=== PATIENT | female | born 1960 | race Caucasian/White ===

== ENCOUNTER → 2022-01-22 | Outpatient (CLI) | payer OTHER ==
[~2022-01-22] MED LIST: AMOCLA875 PO; ASPI81CH PO; CIPRO500 MG PO; FISH1000 PO; Flagyl500 MG PO; MULVITMIND PO; Motion Sickness25 M1 PO; Norco 5-325 Ta1 EACH PO; ONDA4ODT MM
== END ==
LOC: LAB SHORT 17:13 → LAB 17:13
DX: R35.0 Frequency of micturition (principal)
CPT/HCPCS: 87077; 87086; 87186

== ENCOUNTER → 2022-02-16 | Outpatient (CLI) | payer OTHER ==
[2022-02-24 09:56] LABS: Stool Occult Bld Immuno 1 Negative (NEGATIVE)
== END | disposition home or self-care (01) ==
LOC: LAB SHORT 12:00 → PLD 12:00
PROVIDERS: Registered Nurse
DX: Z12.11 Encounter for screening for malignant neoplasm of colon (principal); Z12.12 Encounter for screening for malignant neoplasm of rectum
CPT/HCPCS: G0328

== ENCOUNTER 2022-07-13 19:57 | Emergency (ER) | payer OTHER ==
[~2022-07-13] VITALS: Ht 160 cm; Wt 108.4 kg
[2022-07-13] MEDS ORDERED: Prinivil10 MG PO (20:53)
[2022-07-13] MEDS ORDERED: METF500C PO (20:54)
[2022-07-13] MEDS ORDERED: DOCU100 PO (20:54)
[2022-07-13] MEDS ORDERED: LAVAP4L PO (21:40)
[2022-07-13] MEDS ORDERED: Magic Bullet10 MG PR (21:40)
== END 2022-07-13 21:53 | disposition home or self-care (01) ==
LOC: ER 19:57
DX: K59.00 Constipation, unspecified (principal); I10 Essential (primary) hypertension; J44.9 Chronic obstructive pulmonary disease, unspecified; F17.200 Nicotine dependence, unspecified, uncomplicated; Z88.0 Allergy status to penicillin; Z79.899 Other long term (current) drug therapy; Z79.82 Long term (current) use of aspirin
CPT/HCPCS: 74019

== ENCOUNTER 2022-10-28 11:35 | Day surgery (SDC) | payer OTHER ==
[~2022-10-28] VITALS: Ht 160 cm; Wt 108.5 kg
[~2022-10-28 11:35] MED LIST changes: +DOCU100 PO; +LAVAP4L PO; +METF500C PO; +Magic Bullet10 MG PR; +Prinivil10 MG PO
[2022-10-28] MEDS ORDERED: ERGO400 (12:23)
== END 2022-10-28 14:13 | disposition home or self-care (01) ==
LOC: ORSCSDS 11:35
PROVIDERS: Internal Medicine Gastroenterology
PROC: 0DBL8ZX Excision of Transverse Colon, Via Natural or Artificial Opening Endoscopic, Diagnostic (ICD-10-PCS; principal; 2022-10-28 13:00)
PROC: 0DBN8ZX Excision of Sigmoid Colon, Via Natural or Artificial Opening Endoscopic, Diagnostic (ICD-10-PCS; principal; 2022-10-28 13:00)
DX: R19.4 Change in bowel habit (principal); K59.00 Constipation, unspecified; D12.5 Benign neoplasm of sigmoid colon; K63.5 Polyp of colon; D12.3 Benign neoplasm of transverse colon; K57.30 Diverticulosis of large intestine without perforation or abscess without bleeding; K64.8 Other hemorrhoids; G47.33 Obstructive sleep apnea (adult) (pediatric); J45.909 Unspecified asthma, uncomplicated; E66.01 Morbid (severe) obesity due to excess calories; Z68.41 Body mass index [BMI] 40.0-44.9, adult; E11.9 Type 2 diabetes mellitus without complications; I10 Essential (primary) hypertension; Z79.899 Other long term (current) drug therapy; Z79.84 Long term (current) use of oral hypoglycemic drugs
CPT/HCPCS: 82947; 88305; J1100; J2250; J2405; J2704; J3010; J7120

== ENCOUNTER → 2023-01-21 | Outpatient (CLI) | payer OTHER ==
[~2023-01-21] MED LIST changes: +ERGO400
[2023-01-26 15:12] LABS: HPV 16 Negative (Negative); HPV 18 Negative (Negative); HPV OTHER HR TYPES Negative (Negative)
== END | disposition home or self-care (01) ==
LOC: LAB 16:38 → LAB SHORT 16:38
PROVIDERS: Registered Nurse
DX: Z01.419 Encounter for gynecological examination (general) (routine) without abnormal findings (principal)
CPT/HCPCS: 87624; G0145

== ENCOUNTER 2023-07-02 07:53 | Inpatient (IN) | payer OTHER ==
[~2023-07-02] VITALS: Ht 160 cm; Wt 113.5 kg
[~2023-07-02 07:53] MED LIST changes: -ERGO400; +ERGO400 PO; +Hair, Skin & N1 EACH PO; -MULVITMIND PO
[2023-07-02 09:04] LABS: BASOPHILS ABSOLUTE AUTO 0.04 K/mm3 (0.00-0.23); BASOPHILS PERCENT AUTO 0 % (0-2); EOSINOPHILS ABSOLUTE AUTO 0.03 K/mm3 (0.00-0.68); EOSINOPHILS PERCENT AUTO 0 % (0-6); Hematocrit 40.1 % (33.0-51.0); Hemoglobin 13.6 g/dL (11.5-16.0); IMMATURE GRAN ABSOLUTE AUTO 0.06 K/mm3 (0.00-0.10); IMMATURE GRAN PERCENT AUTO 0 % (0-1); LYMPHOCYTES ABSOLUTE AUTO 2.67 K/mm3 (0.84-5.20); LYMPHOCYTES PERCENT AUTO 16 % (21-46); MONOCYTES ABSOLUTE AUTO 1.36 K/mm3 (0.16-1.47); MONOCYTES PERCENT AUTO 8 % (4-13); Mean Corpuscular HGB Conc 33.9 g/dL (31.5-36.5); Mean Corpuscular Volume 86 fL (80-100); NEUTROPHILS ABSOLUTE AUTO 12.09 K/mm3 (1.96-9.15); NEUTROPHILS PERCENT AUTO 74 % (41-73); Platelet Count 258 K/mm3 (150-400); RDW Coefficient Variation 13.9 % (11.7-14.2); RDW Standard Deviation 43.1 fL (35.1-46.3); Red Blood Cell Count 4.69 M/mm3 (3.80-5.20); White Blood Cell Count 16.25 K/mm3 (4.00-11.30)
[2023-07-02 09:33] LABS: Albumin, Blood 3.4 g/dL (3.4-5.0); Albumin/Globulin Ratio 0.9 (0.8-1.8); Bilirubin, Total 1.4 mg/dL (0.1-1.0); Bun/Creatinine Ratio 20.2 (12.0-20.0); Calcium, Blood 8.9 mg/dL (8.5-10.1); Creatinine, Blood 0.74 mg/dL (0.40-1.00); Globulin, Blood 3.8 g/dL (2.2-4.0); Potassium, Blood 3.6 mmol/L (3.5-5.5); Total Protein, Blood 7.2 g/dL (6.4-8.2)
[2023-07-02 10:56] LABS: Source, Urine Voided
[2023-07-02 11:05] LABS: Bilirubin, Urine Neg (Neg); Blood, Urine 4+ (Neg); Glucose Qualitative, Urine Neg (Neg); Ketones, Urine Neg (Neg); Leukocyte Esterase, Urine 1+ (Neg); Nitrite, Urine Neg (Neg); Protein, Urine 1+ (Neg); Specific Gravity, Urine 1.005 (1.003-1.022); Urobilinogen, Urine 1+ (Normal); pH, Urine 6.5 (5.0-8.0)
[2023-07-02 11:42] LABS: Appearance, Urine Clear (Clear); Color, Urine Yellow (P-Yellow)
[2023-07-02 11:43] LABS: Bacteria Few /hpf; Squamous Epithelial Cells Few /hpf (Few); White Blood Cells, Urine 0-2 /hpf (0-5)
[2023-07-02 13:30] VITALS: BP 92/51
[2023-07-02 15:22] VITALS: BP 118/69
[2023-07-02 19:56] VITALS: BP 83/55
--- NOTE | 2023-07-02 20:27 | NUR ---
LOW BP ON NIGHT TIME VITALS. PT FEELING MOSTLY FINE, PERHAPS A BIT LIGHTHEADED. THIS IS AFTER RECENT DILAUDID ADMINISTRATION FOR PAIN. CALLED TO NOTIFY HOSPITALIST DO. DO DIRECTED TO PAUSE ABX, RUN CURRENTLY HANGING LR BAG AT BOLUS SPEED AND RECHECK BP AFTERWARDS. DOING SO NOW.
--- NOTE | 2023-07-02 20:37 | NUR ---
SHIFT SUMMARY: ASSUMED CARE OF PATIENT UPON HER ARRIVAL FROM ER AT 1319 VIA GURNEY. A&O X 4, IN PAIN. ABLE TO MILLIGAN, SBA TO BR. SKIN INTACT. C/O 9/10 PAIN IN L SIDE OF ABDOMEN; RECIEVED ORDER FOR FENTANYL 25 MCG, BUT THIS WAS NOT EFFECTIVE. ORDER CHANGED TO DILAUDID WHICH WAS MUCH MORE EFFECTIVE. DR. NEGRON (SURGERY) CAME TO BEDSIDE FOR CONSULTATION. FAMILY AT BEDSIDE.
[2023-07-02 21:28] VITALS: BP 110/56
[2023-07-03 02:03] VITALS: BP 102/43
--- NOTE | 2023-07-03 03:53 | NUR ---
SHIFT SUMMARY. CONCERN DUE TO LOW BP EARLY IN SHIFT WHICH WAS MANAGED VIA LR FLUID BOLUS PER ORDER OF HOSPITALIST DO. DR. HOLDER CAME TO EXAMINE PT THEREAFTER. DIRECTED ME TO PERFORM Q4 ABDOMINAL ASSESSMENTS FOR REMAINDER OF THIS SHIFT AND NOTIFY HIM IF BP DROPS AGAIN. BP HAS REMAINED STABLE, DR. HOLDER NOTIFIED OF MOST RECENT BP AND WAS COMFORTABLE WITH THIS VALUE. PT COMPLAINED OF GAS RELATED PAIN EARLY THIS MORNING WHICH HAS BEEN MANAGED VIA SIMETHICONE ORDERED BY DR. HOLDER. NAUSEA REPORTED ONCE WHICH HAS BEEN MAANGED WITH PRN ZOFRAN. AOX4, PLEASANT, COOPERATIVE WITH CARE. SOMEWHAT ANXIOUS. SBA TRANSFER. BED LOCKED IN LOWEST POSITION. CALL LIGHT LEFT WITHIN REACH.
[2023-07-03 05:43] LABS: Albumin, Blood 2.9 g/dL (3.4-5.0); Albumin/Globulin Ratio 0.8 (0.8-1.8); Bilirubin, Total 1.5 mg/dL (0.1-1.0); Bun/Creatinine Ratio 22.9 (12.0-20.0); Calcium, Blood 8.4 mg/dL (8.5-10.1); Creatinine, Blood 0.96 mg/dL (0.40-1.00); Globulin, Blood 3.6 g/dL (2.2-4.0); Magnesium, Blood 2.1 mg/dL (1.6-2.4); Phosphorus, Blood 4.3 mg/dL (2.5-4.9); Potassium, Blood 3.4 mmol/L (3.5-5.5); Total Protein, Blood 6.5 g/dL (6.4-8.2)
[2023-07-03 05:53] LABS: BASOPHILS ABSOLUTE AUTO 0.05 K/mm3 (0.00-0.23); BASOPHILS PERCENT AUTO 0 % (0-2); EOSINOPHILS ABSOLUTE AUTO 0.03 K/mm3 (0.00-0.68); EOSINOPHILS PERCENT AUTO 0 % (0-6); Hematocrit 34.5 % (33.0-51.0); Hemoglobin 11.3 g/dL (11.5-16.0); IMMATURE GRAN ABSOLUTE AUTO 0.11 K/mm3 (0.00-0.10); IMMATURE GRAN PERCENT AUTO 1 % (0-1); LYMPHOCYTES ABSOLUTE AUTO 2.31 K/mm3 (0.84-5.20); LYMPHOCYTES PERCENT AUTO 14 % (21-46); MONOCYTES ABSOLUTE AUTO 1.47 K/mm3 (0.16-1.47); MONOCYTES PERCENT AUTO 9 % (4-13); Mean Corpuscular HGB 28.5 pg (26.0-34.0); Mean Corpuscular HGB Conc 32.8 g/dL (31.5-36.5); Mean Corpuscular Volume 87 fL (80-100); Mean Platelet Volume 9.1 fL (9.1-12.4); NEUTROPHILS ABSOLUTE AUTO 12.55 K/mm3 (1.96-9.15); NEUTROPHILS PERCENT AUTO 76 % (41-73); Platelet Count 207 K/mm3 (150-400); RDW Coefficient Variation 14.1 % (11.7-14.2); Red Blood Cell Count 3.96 M/mm3 (3.80-5.20); White Blood Cell Count 16.52 K/mm3 (4.00-11.30)
[2023-07-03 07:14] VITALS: BP 102/63
--- NOTE | 2023-07-03 08:37 | NUR ---
ASSUMED CARE: PT AWAKE, TALKING TO STAFF, SITTING UP IN BED EATING BREAKFAST. DENIES NEEDS OR CONCERNS AT THIS TIME.
[2023-07-03 16:10] VITALS: BP 108/48
--- NOTE | 2023-07-03 17:49 | NUR ---
SHIFT SUMMARY: PT MINIMAL ASSIST TO RESTROOM. REQUIRES PAIN MEDICATION AFTER ACITIVITY AND USUALLY EVERY [address] NEGRON CAME TO SEE PT AND NO PLANS FOR OPERATION AT THIS TIME. TITA CAME TO VISIT THIS SHIFT. NO ACUTE NEEDS OR CONCERNS.
[2023-07-03 19:15] VITALS: BP 129/68
[2023-07-04] VITALS (9 sets, daily range): BP systolic 115–147; BP diastolic 68–88
--- NOTE | 2023-07-04 08:56 | NUR ---
SHIFT SUMMARY PT A/O, CALM/COOPERATIVE AND ABLE TO MAKE NEEDS KNOWN. SBA TO RESTROOM. CONSTANT PAIN AND MANAGED PER MAR. NAUSEA, BUT NO VOMITING. ROUNDING COMPLETED. CONTINUITY OF CARE ENDORSED TO ONCOMING NURSE.
[2023-07-04 09:32] LABS: Hematocrit 34.4 % (33.0-51.0); Hemoglobin 11.1 g/dL (11.5-16.0); Mean Corpuscular HGB 28.5 pg (26.0-34.0); Mean Corpuscular HGB Conc 32.3 g/dL (31.5-36.5); Mean Corpuscular Volume 88 fL (80-100); Mean Platelet Volume 9.4 fL (9.1-12.4); Platelet Count 214 K/mm3 (150-400); RDW Coefficient Variation 13.8 % (11.7-14.2); RDW Standard Deviation 44.7 fL (35.1-46.3); Red Blood Cell Count 3.89 M/mm3 (3.80-5.20); White Blood Cell Count 18.24 K/mm3 (4.00-11.30)
[2023-07-04 09:55] LABS: Albumin, Blood 2.8 g/dL (3.4-5.0); Albumin/Globulin Ratio 0.7 (0.8-1.8); Bilirubin, Total 1.9 mg/dL (0.1-1.0); Bun/Creatinine Ratio 19.1 (12.0-20.0); Calcium, Blood 8.7 mg/dL (8.5-10.1); Creatinine, Blood 0.73 mg/dL (0.40-1.00); Globulin, Blood 4.2 g/dL (2.2-4.0)
--- NOTE | 2023-07-04 18:23 | NUR ---
PT AOX4 AND COOPERATIVE OF CARE. PT HAS BEEN HAVING NEW INCREASED PAIN RIGHT BELOW LOWER R LUNG AREA. THIS RELAY ENGINEER NOTFIED DRY SELLERS AND FLUIDS WERE STOPPED AND IMAGING ORDERED. CT WAS DONE TOWARDS END OF SHIFT. RADIOLIGST CALLED AND STATED THERE WERE CHANGES AND TO NOTIFY DR NEGRON. DR NEW WAS ALSO NOTIFIED WELL. PT HAS BEEN TREATED THROUGHOUT THE DAY FOR PAIN PER EMAR. PT HAS BEEN INDEPENDENT. CALL LIGHT IS WITHIN REACH WILL CONTINUE TO MONITOR.
[2023-07-05] VITALS (12 sets, daily range): BP systolic 99–164; BP diastolic 55–86
[2023-07-05 05:03] LABS: Hemoglobin 10.7 g/dL (11.5-16.0); Mean Corpuscular HGB 28.5 pg (26.0-34.0); Mean Corpuscular HGB Conc 32.4 g/dL (31.5-36.5); Mean Corpuscular Volume 88 fL (80-100); Mean Platelet Volume 9.5 fL (9.1-12.4); Platelet Count 212 K/mm3 (150-400); RDW Coefficient Variation 13.7 % (11.7-14.2); RDW Standard Deviation 44.3 fL (35.1-46.3); Red Blood Cell Count 3.76 M/mm3 (3.80-5.20)
[2023-07-05 05:25] LABS: Albumin, Blood 2.4 g/dL (3.4-5.0); Albumin/Globulin Ratio 0.6 (0.8-1.8); Bilirubin, Total 1.2 mg/dL (0.1-1.0); Bun/Creatinine Ratio 15.4 (12.0-20.0); Calcium, Blood 8.6 mg/dL (8.5-10.1); Creatinine, Blood 0.72 mg/dL (0.40-1.00); Potassium, Blood 3.6 mmol/L (3.5-5.5); Total Protein, Blood 6.4 g/dL (6.4-8.2)
--- NOTE | 2023-07-05 06:45 | NUR ---
SHIFT SUMMARY PT IS A&O4, IND TO THE BR, RA, VSS, PRN PAIN MEDICATION GIVEN Q2 THROUGHOUT NIGHT FOR AB PAIN, Q1 VITALS DC'D PER DR NEGRON, PT HAS BEEN NPO, NO ACUTE OVERNIGHT EVENTS, CONTINUE POC
--- NOTE | 2023-07-05 12:05 | NUR ---
PATIENT OFF UNIT TO DAY SURGERY VIA HAIR. DAUGHTER HAM ACCOMPANIED.
--- NOTE | 2023-07-05 12:21 | NUR ---
Arrived to Day Surgery by edelmira. History, Chart, Medications and Allergies reviewed before start of procedure. Patient confirms NPO status and agrees with scheduled surgery. Pre-Op teaching done. Pt verbalizes understanding. Surgical site prepped with 2% Chlorhexidine cloth wipe.
--- NOTE | 2023-07-05 17:25 | NUR ---
07/05/23 172 Eliseo Epperson ASSUMED CARE TEACHER OF THE HANDICAPPED AT 1700
--- NOTE | 2023-07-05 19:20 | NUR ---
ARRIVAL TO ROOM PT ARRIVAL TO ROOM VIA GURNEY FROM PACU. PT DROWSY BUT EASILY AROUSABLE. FAMILY AT BEDSIDE. O2 IN PLACE AT 3L NC, KRAUS DRAINING DARK PITER URINE, 4 INCISIONS TO ABD C/D. IV TO R UPPER ARM INFUSING NS @125/HR.
[2023-07-06 04:41] VITALS: BP 128/72
[2023-07-06 05:33] LABS: Hematocrit 31.7 % (33.0-51.0); Hemoglobin 10.2 g/dL (11.5-16.0); Mean Corpuscular HGB 28.2 pg (26.0-34.0); Mean Corpuscular HGB Conc 32.2 g/dL (31.5-36.5); Mean Corpuscular Volume 88 fL (80-100); Mean Platelet Volume 9.3 fL (9.1-12.4); Platelet Count 254 K/mm3 (150-400); RDW Coefficient Variation 13.6 % (11.7-14.2); RDW Standard Deviation 43.6 fL (35.1-46.3); Red Blood Cell Count 3.62 M/mm3 (3.80-5.20); White Blood Cell Count 13.01 K/mm3 (4.00-11.30)
[2023-07-06 06:21] LABS: Bun/Creatinine Ratio 18.6 (12.0-20.0); Creatinine, Blood 0.75 mg/dL (0.40-1.00); Potassium, Blood 3.8 mmol/L (3.5-5.5)
--- NOTE | 2023-07-06 07:32 | NUR ---
SHIFT SUMMARY POD 1 ROBOTIC LAP PARTIAL SIGMID COLECTOMY R/T ACUTE DIVERTIC W/ PERFERATION. 4 ABD INCISIONS W/ LARGEST ON RLQ, WOUND GLUE INTACT W/ NO DRAINAGE TO INCISIONS. PT REMAINS NPO W/ MINIMAL ICE CHIPS DURING NIGHT. PT CONTINUES TO C/O DISCOMFORT TO CATHETER BUT WHEN DISCUSSED GETTING UP TO BATHROOM, PT OPTED TO WAIT FOR REMOVAL. KRAUS REMOVED THIS A.M. BY CNA2. PT REQUESTED PAIN MEDS, DILAUDID 1MG, 4X THIS SHIFT FOR 8/10 PAIN TO ABD/ ELEUTERIO AREA. IV FLUIDS KVO NS @20/HR TO R FA. PT A&OX4, FRIENDLY. NO ACUTE CHANGES THIS SHIFT. CALL LIGHT W/ IN REACH.
[2023-07-06 07:50] VITALS: BP 115/56
[2023-07-06 15:58] VITALS: BP 132/63
--- NOTE | 2023-07-06 19:28 | NUR ---
SHIFT SUMMARY POD1 EXLAP WITH PARTIAL COLLECTOMY, A/OX4, VSS, TOLERATING DIET, PAIN MANAGED PER EMAR. DISCUSSED PAIN MANAGEMENT AND TRANSITIONING TO PO PAIN MEDICATION, PT REFUSED TO TAKE ANY PO PAIN MEDICATIONS. DISCUSSED THIS WITH CYBER DEFENSE FORENSICS ANALYST WHO ALSO ATTEMPTED TO EXPLAIN THIS WITH HER. MD INFORMED OF SITUATION AND WILL DISCUSS PAIN MANAGEMENT IN THE MORNING AND DIRECTED STAFF TO CONTINUE WITH IV PAIN MEDS FOR TONIGHT. PT REPORTS FEELING SHE HAS NOT BEEN CHECKED ON ENOUGH, DISCUSSED WITH HER AID AND REINFORCED AN EARLIER CONVERSATION WITH HER THAT STAFF WILL NOT WAKE HER UP ON HOURLY ROUNDS IF SHE IS SLEEPING AND WE DO NOT NEED TO WAKE HER UP AT THAT TIME. PT AND HER FAMILY INFORMED THAT SHE WAS BEING CHECKED ON REGULARLY T/O THE DAY TODAY BY BOTH HER PRIMARY RN AND PLANT MAINTENANCE WORKER. NO ACUTE EVENTS THIS SHIFT, CALL LIGHT IN REACH.
[2023-07-06 19:58] VITALS: BP 139/72
[2023-07-07 04:25] VITALS: BP 141/74
[2023-07-07 04:35] LABS: Hematocrit 32.9 % (33.0-51.0); Hemoglobin 10.9 g/dL (11.5-16.0); Mean Corpuscular HGB 28.8 pg (26.0-34.0); Mean Corpuscular HGB Conc 33.1 g/dL (31.5-36.5); Mean Corpuscular Volume 87 fL (80-100); Platelet Count 293 K/mm3 (150-400); RDW Coefficient Variation 13.5 % (11.7-14.2); RDW Standard Deviation 42.7 fL (35.1-46.3); Red Blood Cell Count 3.79 M/mm3 (3.80-5.20); White Blood Cell Count 12.03 K/mm3 (4.00-11.30)
[2023-07-07 05:04] LABS: Bun/Creatinine Ratio 15.2 (12.0-20.0); Calcium, Blood 8.4 mg/dL (8.5-10.1); Creatinine, Blood 0.72 mg/dL (0.40-1.00); Potassium, Blood 3.5 mmol/L (3.5-5.5)
--- NOTE | 2023-07-07 07:40 | NUR ---
SHIFT SUMMARY POD2 ACUTE DIVERTIC W/ PERFERATION; ROBOTIC LAP PARTIAL SIGMOID COLECTOMY, 4 INCISIONS TO ABD W/ LARGEST ONE TO BOTTOM OF ABD, C/D/I. PT TOLERATING CL DIET. REFUSING ANY PO MEDS AT THIS TIME. EDUCATED PT ON IMPORTANCE OF TRANSITIONING TO ORAL MEDS FOR DISCHARGE, V/U BUT CONTINUES TO REQUEST IV PAIN MEDS. PT CONTINUES TO VOICE CONCERNS OF FREQUENT CONSTIPATION. NEW IV VIA ARCHEOLOGY PROFESSOR AND ULTRASOUND RN INFUSING TKO NS@20ML NS. PT PLEASANT AND COOPERATIVE, NO ACUTE CHANGES THIS SHIFT. CALL LIGHT W/IN REACH.
[2023-07-07 07:47] VITALS: BP 121/66
--- NOTE | 2023-07-07 15:26 | NUR ---
SHIFT SUMMARY: POD 2 LAP SIGMOID COLECTOMY PATIENT IS A&OX4. VS ARE WNL AND IS ON RA. PATIENT HAS RECIEVED PO ATIVAN SO FAR THIS SHIFT. HER ABD LAP SITES X4 WITH WOUND GLUE ARE C/D/I. SHE IS TOLERATING HER FULL LIQUID DIET. SHE IS VOIDING AND PASSING GAS. PATIENT REPORTED AFTER EATING HER LUNCH STATING "I FEEL RUMBLING MOVING AROUND..COULD BE A FART OR A POOP WE WILL SEE". PATIENT WAS GIVEN HER BOWEL CARE THIS MORNING. SHE IS INDEP. IN THE ROOM. PATIENT WAS ABLE TO TAKE A SHOWER TODAY WELL. THIS NURSE ENCOURAGED PATIENT TO WALK THE HALLWAYS A COUPLE TIMES THIS SHIFT BUT PATIENT WOULD STATE "I'M NOT READY YET". SHE IS CURRENTLY LAYING IN BED SNORING WITH CALL LIGHT IN REACH.
[2023-07-07 15:54] VITALS: BP 141/73
--- NOTE | 2023-07-07 16:26 | NUR ---
PATIENT JUST WALKED IN THE HALLWAYS WITH THE COMPLIANCE ATTORNEY AND WHEN RETURNING TO THE ROOM SHE PASSED A LARGE AMOUNT OF FLATUS. PATIENT IS CURRENTLY SITTING AT THE SIDE OF THE BED WITH CALL LIGHT IN REACH.
[2023-07-07 19:58] VITALS: BP 123/74
[2023-07-08 02:04] VITALS: BP 126/83
--- NOTE | 2023-07-08 04:22 | NUR ---
SHIFT SUMMARY PT POD 3 LAY COLECTOMY, LAP SITES X'S 3 W/LARGER INCISION D/I. PT PASSING GAS, NO BM, MOD ABD DISTENTION, NO N/V T/O SHIFT TOLERATING REGULAR DIET. PT MEDICATED X'S 2 W/DILAUDID IVP ORAL MEDICATION WAS DIFFICULT TO SWALLOW. PT INDEPENDENT IN ROOM. PT EDUCATED TO CONTINUE AMBULATING TO PROMOTE GASTRIC MOTILITY. GIVEN MIRALAX PER EMAR.
[2023-07-08 08:30] VITALS: BP 137/71
[2023-07-08 08:50] LABS: Hematocrit 33.4 % (33.0-51.0); Mean Corpuscular HGB 28.6 pg (26.0-34.0); Mean Corpuscular HGB Conc 32.9 g/dL (31.5-36.5); Mean Corpuscular Volume 87 fL (80-100); Mean Platelet Volume 9.3 fL (9.1-12.4); Platelet Count 342 K/mm3 (150-400); RDW Coefficient Variation 13.6 % (11.7-14.2); RDW Standard Deviation 42.6 fL (35.1-46.3); Red Blood Cell Count 3.84 M/mm3 (3.80-5.20); White Blood Cell Count 13.06 K/mm3 (4.00-11.30)
[2023-07-08 09:08] LABS: Bun/Creatinine Ratio 13.9 (12.0-20.0); Calcium, Blood 8.4 mg/dL (8.5-10.1); Creatinine, Blood 0.65 mg/dL (0.40-1.00); Potassium, Blood 3.5 mmol/L (3.5-5.5)
[2023-07-08 15:26] VITALS: BP 130/81
--- NOTE | 2023-07-08 16:55 | NUR ---
SUMMARY NO ACUTE CHANGES T/O SHIFT. PT INDEPENDENT IN ROOM. TOLERATING SMALL AMOUNTS REGULAR DIET. MEDICATED PER ORDERS FOR PAIN W/HYDROCODONE ELIXIR; PT TOLERATING WITHOUT DIFFICULTY. CALL LIGHT IN REACH.
[2023-07-08 20:11] VITALS: BP 127/77
[2023-07-09 04:03] VITALS: BP 137/72
[2023-07-09 04:53] LABS: BASOPHILS ABSOLUTE AUTO 0.07 K/mm3 (0.00-0.23); BASOPHILS PERCENT AUTO 1 % (0-2); EOSINOPHILS ABSOLUTE AUTO 0.29 K/mm3 (0.00-0.68); EOSINOPHILS PERCENT AUTO 3 % (0-6); Hematocrit 31.5 % (33.0-51.0); Hemoglobin 10.2 g/dL (11.5-16.0); IMMATURE GRAN ABSOLUTE AUTO 0.32 K/mm3 (0.00-0.10); IMMATURE GRAN PERCENT AUTO 3 % (0-1); LYMPHOCYTES PERCENT AUTO 24 % (21-46); MONOCYTES ABSOLUTE AUTO 0.84 K/mm3 (0.16-1.47); MONOCYTES PERCENT AUTO 9 % (4-13); Mean Corpuscular HGB 28.3 pg (26.0-34.0); Mean Corpuscular HGB Conc 32.4 g/dL (31.5-36.5); Mean Corpuscular Volume 88 fL (80-100); Mean Platelet Volume 9.2 fL (9.1-12.4); NEUTROPHILS ABSOLUTE AUTO 5.62 K/mm3 (1.96-9.15); NEUTROPHILS PERCENT AUTO 60 % (41-73); Platelet Count 327 K/mm3 (150-400); RDW Coefficient Variation 13.6 % (11.7-14.2); RDW Standard Deviation 43.8 fL (35.1-46.3); White Blood Cell Count 9.34 K/mm3 (4.00-11.30)
--- NOTE | 2023-07-09 05:02 | NUR ---
PT ALERT AND O X 4. PLEASANT AND COOPERATIVE. VSS. PAIN CONTROLLED WITH PRN ANALGESIA. AMBULATING IN ROOM. RESPS EVEN AND UNLABORED, LUNGS CLEAR TO AUSCULTATION. ABDOMEN SOFT AND ROUND, FAIR APPETITE. BM X 1. VOIDING QS. SURGICAL SITES CLEAR AND APPROXIMATED. NO SX DRAINAGE. PIV TO SL BETWEEN MEDS.
[2023-07-09 07:31] VITALS: BP 131/65
[2023-07-09] MEDS ORDERED: MIRALAX17 GM PO (15:25)
[2023-07-09] MEDS ORDERED: SIME80CH PO (15:26)
[2023-07-09] MEDS ORDERED: HYDROCODONE-AC118 M5 PO (15:28)
[2023-07-09 16:07] VITALS: BP 133/73
--- NOTE | 2023-07-09 17:05 | NUR ---
DISCHARGE: PACKET PRINTED AND PT EDUCATED. PT GIVEN SCRIPTS FOR FWW, COMMODE AND LIQUID NARCO. PT DAUGHTER PRESENT FOR DC INSTRUCTIONS. PT VERBALIZED UNDERSTANDING. LEFT UNIT VIA WHEELCHAIR AT ABOUT 1620
== END 2023-07-09 16:30 | disposition home or self-care (01) | DRG 853 ==
LOC: ER 07:53 → SURS 11:51 → MEDS 11:51 → SURS 07-05 18:36
PROVIDERS: Family Medicine; Student in an Organized Health Care Education/Training Program; Surgery; ADMIT Hospitalist
PROC: 3E03329 Introduction of Other Anti-infective into Peripheral Vein, Percutaneous Approach (ICD-10-PCS; 2023-07-02)
PROC: 8E0W4CZ Robotic Assisted Procedure of Trunk Region, Percutaneous Endoscopic Approach (ICD-10-PCS; 2023-07-05)
PROC: 0DBN4ZZ Excision of Sigmoid Colon, Percutaneous Endoscopic Approach (ICD-10-PCS; principal; 2023-07-05 13:00)
DX: A41.9 Sepsis, unspecified organism (principal); K65.8 Other peritonitis; K57.20 Diverticulitis of large intestine with perforation and abscess without bleeding; Z68.41 Body mass index [BMI] 40.0-44.9, adult; K80.10 Calculus of gallbladder with chronic cholecystitis without obstruction; N39.0 Urinary tract infection, site not specified; J44.9 Chronic obstructive pulmonary disease, unspecified; I10 Essential (primary) hypertension; E66.01 Morbid (severe) obesity due to excess calories; F12.90 Cannabis use, unspecified, uncomplicated; R31.9 Hematuria, unspecified; K66.8 Other specified disorders of peritoneum; F17.210 Nicotine dependence, cigarettes, uncomplicated; F41.9 Anxiety disorder, unspecified; G47.33 Obstructive sleep apnea (adult) (pediatric); E11.9 Type 2 diabetes mellitus without complications; G89.29 Other chronic pain; B96.20 Unspecified Escherichia coli [E. coli] as the cause of diseases classified elsewhere; Z87.442 Personal history of urinary calculi; Z79.811 Long term (current) use of aromatase inhibitors; Z79.84 Long term (current) use of oral hypoglycemic drugs; Z88.1 Allergy status to other antibiotic agents; Z88.8 Allergy status to other drugs, medicaments and biological substances; Z79.899 Other long term (current) drug therapy; Z98.890 Other specified postprocedural states; Z98.51 Tubal ligation status; Z86.718 Personal history of other venous thrombosis and embolism; Z79.4 Long term (current) use of insulin
CPT/HCPCS: 36415; 71045; 74177; 80048; 80053; 81001; 82947; 83605; 83690; 83735; 83880; 84100; 84484; 85025; 85027; 87040; 87077; 87086; 87186; 88307; 93005; 93010; 94760; 96374-59; 96375; 96376; 99285-25; A9270; J1100; J1170; J1650; J1885; J2250; J2270; J2405; J2543; J2704; J2710; J3010; J7030; J7050; J7120; Q9967

== ENCOUNTER 2023-09-24 09:06 | Day surgery (SDC) | payer OTHER ==
[~2023-09-24 09:06] MED LIST changes: +HYDROCODONE-AC118 M5 PO; +MIRALAX17 GM PO; +SIME80CH PO
== END 2023-09-28 22:41 | disposition home or self-care (01) ==
LOC: MOI US 09:06 → MOI MAM 09:30 → MOI US 09-28 22:41
DX: C50.411 Malignant neoplasm of upper-outer quadrant of right female breast (principal); Z17.0 Estrogen receptor positive status [ER+]
CPT/HCPCS: 19285; 77065; A4648

== ENCOUNTER 2023-09-27 08:05 | Day surgery (SDC) | payer OTHER ==
[~2023-09-27] VITALS: Ht 160 cm; Wt 111.2 kg
[2023-09-27] VITALS (11 sets, daily range): BP systolic 116–135; BP diastolic 58–85
--- NOTE | 2023-09-27 10:35 | NUR ---
Ambulatory in Day Surgery History, Chart, Medications and Allergies reviewed before start of procedure.Pre-Op teaching done. Pt verbalizes understanding. Patient confirms NPO status and agrees with scheduled surgery. Patient States Post-Procedure ride home has been arranged.
--- NOTE | 2023-09-27 13:50 | NUR ---
PT REPORTING PAIN OF 8/10 IN LEFT CHEST. PT IS ALSO REPORTING NAUSEA. NAUSEA MEDS GIVEN, SEE EMAR. PT IS TOLERATING WATER AND EATING CRACKERS. PAIN MEDS WILL BE GIVEN PO WHEN PT'S NAUSEA IS BETTER, PER PT REQUEST. DAUGHTER AT BEDSIDE. VSS.
--- NOTE | 2023-09-27 14:30 | NUR ---
Patient up to Ambulate independently. Gait steady. Discharge instructions reviewed with patient. Patient verbalizes understanding. Copy given to patient to take home. DAUGHTER ALSO PRESENT FOR INSTRUCTIONS. Discharged via wheelchair to private car for ride home WITH DAUGHTER.
== END 2023-09-27 14:28 | disposition home or self-care (01) ==
LOC: ORSCMMR 08:05 → NM 08:05
PROVIDERS: Surgery
PROC: 07B50ZX Excision of Right Axillary Lymphatic, Open Approach, Diagnostic (ICD-10-PCS; principal; 2023-09-27 10:00)
PROC: 0HBT0ZZ Excision of Right Breast, Open Approach (ICD-10-PCS; principal; 2023-09-27 10:00)
DX: C50.411 Malignant neoplasm of upper-outer quadrant of right female breast (principal); Z17.0 Estrogen receptor positive status [ER+]; D36.0 Benign neoplasm of lymph nodes; I10 Essential (primary) hypertension; G47.33 Obstructive sleep apnea (adult) (pediatric); Z87.891 Personal history of nicotine dependence; F41.8 Other specified anxiety disorders; E88.810 Metabolic syndrome; Z79.899 Other long term (current) drug therapy; Z68.41 Body mass index [BMI] 40.0-44.9, adult
CPT/HCPCS: 38792; 76098; 82947; 88307; 88342; A9270; A9520; J0690; J1100; J1790; J1885; J2250; J2371; J2405; J2704; J3010; J7120; Q9968

== ENCOUNTER 2024-08-14 08:22 | Day surgery (SDC) | payer OTHER ==
[~2024-08-14] VITALS: Ht 160 cm; Wt 120.0 kg
[2024-08-14] MEDS ORDERED: CeFAZolin Sodium 2,000 MG VIAL ONE (08:48)
[2024-08-14] MEDS ORDERED: NS 50 ML IV ONE (08:49)
[2024-08-14] MEDS ORDERED: EXEM25 PO (09:02)
[2024-08-14] MEDS ORDERED: Midazolam HCl 1MG / ML 2ML Vial ONE (09:08)
[2024-08-14] MEDS ORDERED: FentaNYL Citrate 50 MCG/ML 2 ML Injection ONE (09:08)
[2024-08-14] MEDS ORDERED: NS 500 ML IV ONE ×2 (09:18→09:29)
[2024-08-14] MEDS ORDERED: propofoL 20 ML IV ONE (09:38)
[2024-08-14 09:53] VITALS: BP 107/65
== END 2024-08-14 10:12 | disposition home or self-care (01) ==
LOC: ORSCSDS 08:22
PROVIDERS: Orthopaedic Surgery
PROC: 01N54ZZ Release Median Nerve, Percutaneous Endoscopic Approach (ICD-10-PCS; principal; 2024-08-14 10:00)
DX: G56.03 Carpal tunnel syndrome, bilateral upper limbs (principal); F41.8 Other specified anxiety disorders; E78.5 Hyperlipidemia, unspecified; G47.33 Obstructive sleep apnea (adult) (pediatric); E88.810 Metabolic syndrome; I12.9 Hypertensive chronic kidney disease with stage 1 through stage 4 chronic kidney disease, or unspecified chronic kidney disease; N18.9 Chronic kidney disease, unspecified; E66.01 Morbid (severe) obesity due to excess calories; Z68.42 Body mass index [BMI] 45.0-49.9, adult; Z87.891 Personal history of nicotine dependence; Z79.899 Other long term (current) drug therapy
CPT/HCPCS: 82947; J0690; J2250; J2704; J3010; J7040